=== PATIENT | female | born 1985 ===

== ENCOUNTER 2019-05-16 08:27 | Outpatient (CLI) | payer OTHER ==
--- NOTE | 2019-05-16 09:03 | MMO ---
Bilateral MAMMO Bilat Diag [facility]. CLINICAL HISTORY: Patient is 33 years old and is seen for diagnostic exam and lump or thickening in the right breast. The patient has the following family history of breast cancer: grandmother, malignant (generic). The patient has no personal history of cancer. VIEWS: The views performed were: bilateral craniocaudal with tomosynthesis; bilateral mediolateral oblique with tomosynthesis; and bilateral mediolateral with tomosynthesis. FILMS COMPARED: The present examination has been compared to a prior imaging study performed at [facility] on 05/16/2019. This study has been interpreted with the assistance of computer-aided detection. MAMMOGRAM FINDINGS: The breasts are extremely dense, which may lower the sensitivity of mammography. There are no suspicious masses, suspicious calcifications, or new areas of architectural distortion. IMPRESSION: THERE IS NO MAMMOGRAPHIC EVIDENCE OF MALIGNANCY. A ROUTINE FOLLOW-UP MAMMOGRAM AT AGE 38 IS RECOMMENDED. THE RESULTS OF THIS EXAM WERE SENT TO THE PATIENT. ACR BI-RADS Category 1 - Negative MAMMOGRAPHY NOTE: 1. A negative mammogram report should not delay a biopsy if a dominant of clinically suspicious mass is present. 2. Approximately 10% to 15% of breast cancers are not detected by mammography. 3. Adenosis and dense breasts may obscure an underlying neoplasm. Reported by: CHARLES ERNANDEZ MD Electonically Signed: [id number]
--- NOTE | 2019-05-16 10:46 | ULT ---
RIGHT BREAST ULTRASOUND: Date: 05/16/2019 HISTORY: Palpable mass at 10 o'clock position of right breast in a 33-year-old female. COMPARISON: Mammogram dated 05/16/2019. TECHNIQUE: Multiplanar Magdaleno scale and color Doppler images were obtained in a right breast ultrasound. FINDINGS: At the 10 o'clock position of the right breast, there are two adjacent cysts measuring up to 1.8 cm i n size. No suspicious mass or shadowing is seen in either breast. IMPRESSION: BI-RADS Category 2 - Benign findings. Annual screening mammography is recommended.
== END 2019-05-16 08:28 | disposition home or self-care (01) ==
LOC: BICMAMMO 08:27
PROVIDERS: ATTEND Family Medicine
DX: N63.10 Unspecified lump in the right breast, unspecified quadrant (principal); Z80.3 Family history of malignant neoplasm of breast
CPT/HCPCS: 77066; G0279

== ENCOUNTER 2020-04-30 13:41 | Outpatient (CLI) | payer OTHER ==
[~2020-04-30 13:41] MED LIST: Iopamidol 300 61% 50 ML VIAL FS ONE
[2020-04-30 14:10] LABS: BHCG - Serum Negative (NEGATIVE); Pregs Control Background? CLEAR/WHITE (CLR/WHITE); Pregs Control Bar Appear? YES (CONTROL BAR)
== END 2020-04-30 13:42 | disposition home or self-care (01) ==
LOC: RAD 13:41
PROVIDERS: ATTEND Obstetrics & Gynecology
DX: Z32.00 Encounter for pregnancy test, result unknown (principal); N97.9 Female infertility, unspecified
CPT/HCPCS: 58340; 74740; 84703; Q9967